=== PATIENT | female | born 1985 | race Caucasian/White ===

== ENCOUNTER 2023-11-09 02:52 | Emergency (ER) | payer OTHER, SELFPAY ==
[2023-11-09 02:54] VITALS: BP 122/72
[2023-11-09 03:08] VITALS: BMI 29.9
[2023-11-09 03:23] VITALS: BP 120/70
--- NOTE | 2023-11-09 03:23 | ED.GENMED ---
History of Present Illness
<JOSE Mijares - Last Filed: 11/09/23 03:45>
General
Chief Complaint: Abdominal Pain
Source: patient
Exam Limitations: none
Time Seen by Provider: 11/09/23 03:08
Nursing documentation reviewed up to this point in time: agreed with
History of Present Illness
History of Present Illness:
Pt is a 38 y/o F with pmhx of anxiety presents with complaints of epigastric pain and chest tightness x5 hrs. The abdominal pain and chest tightness is constant and rated a 7-8/10 despite taking Ibuprofen, Cyclobenzaprine, and hydrocodone. The chest
tightness radiates into bilateral upper extremities. Pain is not worsened with food, laying down, or sitting up. There is associated nausea, SOB, dyspnea, lightheadedness and dizziness with sensations of near syncope. The SOB is worsened with
movement. Denies vomiting, constipation, diarrhea, bloating, LOC, headache.
The pt has a pmhx of anxiety and back surgery. The pt takes Miles, Buspirone, and Lamictal. She has Cyclobenzaprine and hydrocodone that was leftover from her back surgery.
Past History
<JOSE Mijares - Last Filed: 11/09/23 03:45>
Past History
ED Past Medical History: Psychiatric (anxiety)
Social History
Tobacco: Non-smoker
Alcohol: None
Drug: None
Review of Systems
<JSOE Mijares - Last Filed: 11/09/23 03:45>
Review of Systems
Allergies reviewed?: Yes
Constitutional: Reports no symptoms
EENT: Reports no symptoms
Respiratory: Reports trouble breathing
Cardiac: Reports chest pain
ABD/GI: Reports abdominal pain and nausea
: Reports no symptoms
Musculoskeletal: Reports no symptoms
Skin: Reports no symptoms
Neurological: Reports dizzy and headache
Endocrine: Reports no symptoms
Hematologic/Lymphatic: Reports no symptoms
Psychiatric: Reports no symptoms
Phy Exam
<JOSE Mijares - Last Filed: 11/09/23 03:45>
General Physical Exam
General Presentation: well appearing and no apparent distress
General age: appears stated age
General Skin: warm and dry
General Habitus: normal
General Mental: alert
ENT Exam
ENT Exam: neck supple and normocephalic
Eye Exam
Eye Exam: PERRL, EOMI, cornea clear and conjunctiva normal
Cardiovascular Exam
Cardiovascular Exam: regular rate/rhythm and normal peripheral pulses
Pulmonary Exam
Pulmonary Exam: lungs clear and no cough
Respirations: mild increase in effort and shallow
Chest Wall: Left anterior: tenderness, Left lateral: tenderness and Right lateral: tenderness
Gastrointestinal Exam
Gastrointestinal Exam: normal bowel sounds, soft and non distended
Palpation: left upper quadrant: Moderate tenderness, left lower quadrant: No tenderness, right upper quadrant: Moderate tenderness and right lower quadrant: No tenderness
Neurological Exam
Neurological Exam: alert, oriented x3, CN II-XII intact, no motor deficits, normal reflexs, no sensory deficits and speech normal
Musculoskeletal Exam
Musculoskeletal Exam: full ROM and neuro vasc intact
Skin Exam
Skin Exam: normal color and warm/dry
Psychiatric Exam
Psychiatric Exam: normal mood/affect
Course
<JOSE Mijares - Last Filed: 11/09/23 03:45>
Orders/Labs/Results
Orders:
Orders
11/09/23 02:59
ECG [Electrocardiogram (*1)] Urgent
Reason for Study: Abdominal Pain
EKG- Treatment ONCE
11/09/23 03:01
IV Insert/Care/Rem.- Treatment PRN
11/09/23 03:04
Test Result ONCE
11/09/23 03:15
Complete Blood Count/With Diff Urgent
Comprehensive Metabolic Panel Urgent
HCG, Serum Qualitative Screen Urgent
Lipase Urgent
Urinalysis Reflex To Culture Urgent
Date Specimen was Collected: 11/09/23
Time Specimen was Collected: 03:01
11/09/23 03:33
Miles Urgent
Troponin I Urgent
11/09/23 04:01
US Abdomen Complete/Upper Urgent
Comment:
Reason For Exam: upper abd. pain
11/09/23 04:17
CR Chest - 2 Views Urgent
Comment:
Reason For Exam: upper abd paon
Abnormal Lab Results
11/09/23 11/09/23
03:15 03:33
WBC 16.0 H 10^3/uL
(4.8-10.8)
Hct 36.8 L %
(37.0-47.0)
Plt Count 416 H 10^3/uL
(130-400)
Abs Immat Gran (auto) 0.1 H 10^3/uL
(0-0.05)
Absolute Neuts (auto) 13.6 H 10^3/uL
(1.4-6.5)
Neutrophils % 84.9 H %
(42.2-75.2)
Lymphocytes % 10.1 L %
(20.5-51.1)
Glucose 116 H mg/dl
(70-99)
AST 59 H U/L
(14-36)
Miles 0.4 L mmol/L
(0.6-1.2)
11/09/23 03:15
11/09/23 03:15
Vital Signs
Initial and Last Documented VS:
Initial Vital Signs
Temp Pulse Resp BP Pulse Ox
97.7 F 79 19 122/72 100
11/09/23 02:54 11/09/23 02:54 11/09/23 02:54 11/09/23 02:54 11/09/23 02:54
Last Documented Vital Signs
Temp Pulse Resp BP Pulse Ox
97.7 F 88 18 122/67 99
11/09/23 02:54 11/09/23 04:00 11/09/23 06:00 11/09/23 06:00 11/09/23 06:00
<Toi Constantino, - Last Filed: 11/09/23 06:40>
Orders/Labs/Results
Orders:
Orders
11/09/23 02:59
ECG [Electrocardiogram (*1)] Urgent
Reason for Study: Abdominal Pain
EKG- Treatment ONCE
11/09/23 03:01
IV Insert/Care/Rem.- Treatment PRN
11/09/23 03:04
Test Result ONCE
11/09/23 03:15
Complete Blood Count/With Diff Urgent
Comprehensive Metabolic Panel Urgent
HCG, Serum Qualitative Screen Urgent
Lipase Urgent
Urinalysis Reflex To Culture Urgent
Date Specimen was Collected: 11/09/23
Time Specimen was Collected: 03:01
11/09/23 03:33
Miles Urgent
Troponin I Urgent
11/09/23 04:01
US Abdomen Complete/Upper Urgent
Comment:
Reason For Exam: upper abd. pain
11/09/23 04:17
CR Chest - 2 Views Urgent
Comment:
Reason For Exam: upper abd paon
Abnormal Lab Results
11/09/23 11/09/23
03:15 03:33
WBC 16.0 H 10^3/uL
(4.8-10.8)
Hct 36.8 L %
(37.0-47.0)
Plt Count 416 H 10^3/uL
(130-400)
Abs Immat Gran (auto) 0.1 H 10^3/uL
(0-0.05)
Absolute Neuts (auto) 13.6 H 10^3/uL
(1.4-6.5)
Neutrophils % 84.9 H %
(42.2-75.2)
Lymphocytes % 10.1 L %
(20.5-51.1)
Glucose 116 H mg/dl
(70-99)
AST 59 H U/L
(14-36)
Miles 0.4 L mmol/L
(0.6-1.2)
11/09/23 03:15
11/09/23 03:15
Vital Signs
Initial and Last Documented VS:
Initial Vital Signs
Temp Pulse Resp BP Pulse Ox
97.7 F 79 19 122/72 100
11/09/23 02:54 11/09/23 02:54 11/09/23 02:54 11/09/23 02:54 11/09/23 02:54
Last Documented Vital Signs
Temp Pulse Resp BP Pulse Ox
97.7 F 88 18 122/67 99
11/09/23 02:54 11/09/23 04:00 11/09/23 06:00 11/09/23 06:00 11/09/23 06:00
<JOSE Mijares - Last Filed: 11/09/23 03:45>
MDM/Problems Addressed
Differential Diagnosis Includes:
GERD
Gastritis
Acute Myocardial Infarction
Miles toxicity
<JOSE Mijares - Last Filed: 11/09/23 03:45>
*Critical Care Note
Total Time (30-74mins, 75-104mins- exclusive of procedures): Not Applicable
<Toi Constantino DO - Last Filed: 11/09/23 06:40>
Update Note
Update Note:
ABDOMINAL ULTRASOUND
IMPRESSION:
Impacted gallstone at the neck and the gallbladder is distended. No sonographic Mann's sign (but the patient received pain medications). No wall thickening, pericholecystic fluid, or other signs of cholecystitis. Common bile duct is
unremarkable. Constellation findings are nonspecific, consider further workup if indicated or followup ultrasound especially if symptoms persist or progress.
Remainder of the visualized upper abdomen is unremarkable.
Patient was to be admitted to the hospital. Patient concerned because she has a trip that she has been planning for a year, and is leaving tomorrow. Patient does not wish to be in the hospital at this time. Case was discussed with general
surgery. Patient did pass a p.o. challenge. Did discuss a bland diet. I did discuss symptoms for which she should return to the nearest emergency department including but not limited to fever, chills, increased pain or discomfort. Patient
verbalized understanding of this and is in agreement. I will give her the name of general surgery.
ED Attending Note
<JOSE Mijares - Last Filed: 11/09/23 03:45>
-
Portions of this chart may have been created with voice recognition software.� Occasional wrong word or��sound alike� substitutions may have occurred due to the inherent limitations of voice recognition software.
<Toi Constantino DO - Last Filed: 11/09/23 06:40>
ED Attending Note
Patient seen and examined by attending physician: Yes
I performed the substantive portion of visit, reviewed & personally made and approve the management plan that is documented in note by myself or ARIES.: Yes
Discharge Plan
Departure
Patient Disposition: Home (Routine Discharge)
Date of Disposition: 11/09/23
Time of Disposition: 06:39
Patient with high blood pressure during this ER visit?: Yes
Condition: Good
Discharge Problem:
Biliary colic
Instructions: [place] Diet, Gallstones (DC), Abdominal Pain, BLOOD PRESSURE
Prescriptions:
No Action
cyclobenzaprine 10 mg Tablet
10 mg PO HS PRN (Reason: muscle pain)
buspirone 5 mg Tablet
5 mg PO HS
lamotrigine [Lamictal] 200 mg Tablet
200 mg PO HS
lithium carbonate 450 mg Tablet Extended Release
450 mg PO HS
hydrocodone-acetaminophen 5-300 mg Tablet
1 tab PO Q6H PRN (Reason: pain)
Referrals:
Jin Holder MD [Active] - Next open appointment
NONE,* [Family Provider] -
Activity Restrictions/Additional Instructions:
It was a pleasure meeting you and taking part in your care. We hope for your continued healing and wellness.
Please read discharge instructions in their entirety. However, they are for general education and may not describe your exact diagnosis at discharge. Information on your ER visit and medical conditions were discussed with you along with appropriate
follow up information...
If indicated, please take your medications as instructed and indicated on discharge paperwork.
Please schedule a follow up appointment as directed. Call to schedule an appointment
Please return to the emergency department with ANY change in, persisting, or worsening of symptoms. If any of your symptoms do not improve, or persist, or become more severe within 6-12 hours, please return to the emergency department for further
care.
Please return to the emergency department if you develop a headache, neck pain/stiffness, fever greater than 100.4F, chest pain, shortness of breath, persistent nausea, vomiting, slurred speech, difficulty walking, numbness/tingling, weakness, signs
of infection or any other symptoms that are worrisome to you.
If you have any questions or concerns please do not hesitate to call the Hospital at or E-mail me directly at [email or web address]
Interventions
Interventions:
*Risk Screen - Suicide Last Done: 11/09/23 02:54
*General Assessment Last Done: 11/09/23 02:54
*Neglect/Abuse Screening Last Done: 11/09/23 02:54
ED- Fall Risk Assessment Last Done: 11/09/23 03:21
*ED COVID-19 Vaccine History Last Done: 11/09/23 02:54
[place]-Ctpggm-Tdliejherk Assessment Last Done: 11/09/23 03:21
Discharge Date and Time
Print Language: TUVALUAN
[2023-11-09 03:26] LABS: % Basophils 0.3 % (0-2); % Eosinophils 0.4 % (0-6); % Immature Granulocytes 0.5 % (0-0.5); % Lymphocytes 10.1 % (20.5-51.1); % Monocytes 3.8 % (1.7-9.3); % Neutrophils 84.9 % (42.2-75.2); Absolute Eosinophils 0.1 10^3/uL (0-0.7); Absolute Immature Granulocytes 0.1 10^3/uL (0-0.05); Absolute Lymphocytes 1.6 10^3/uL (1.2-3.4); Absolute Monocytes 0.6 10^3/uL (0.1-0.6); Absolute Neutrophils 13.6 10^3/uL (1.4-6.5); Hematocrit 36.8 % (37.0-47.0); Hemoglobin 12.8 g/dL (12.0-16.0); Mean Corp Hgb Conc. 34.8 g/dL (33.0-37.0); Mean Corpuscular Volume 83.4 fL (81.0-99.0); Mean Platelet Volume 8.5 fL (7.4-10.4); Nucleated Red Blood Cells % 0 %; Platelet Count 416 10^3/uL (130-400); Red Blood Cell Count 4.41 10^6/uL (4.20-5.40); Red Cell Dist. Width 12.5 % (11.5-14.5); Urine Albumin Negative (Neg - Trace); Urine Bilirubin Negative (Negative); Urine Character Clear (Clear); Urine Color Yellow; Urine Glucose Negative (Negative); Urine Ketone Negative (Negative); Urine Leukocyte Negative (Negative); Urine Nitrite Negative (Negative); Urine Occult Blood Negative (Negative); Urine Specific Gravity 1.025 (<1.030); Urine Urobilinogen Negative (Neg - 1+)
[2023-11-09 03:35] LABS: HCG, Serum Qualitative Screen Negative
[2023-11-09 03:38] LABS: ALT (SGPT) 34 U/L (0-35); AST (SGOT) 59 U/L (14-36); Albumin 4.8 g/dl (3.5-5.0); Alkaline Phosphatase 85 U/L (38-126); Blood Urea Nitrogen 9 mg/dl (7-17); Calcium 10.2 mg/dl (8.4-10.2); Carbon Dioxide 27 mmol/L (22-30); Chloride 102 mmol/L (98-107); Estimated Creatinine Clearance > 125 ml/min; Glucose 116 mg/dl (70-99); Lipase 294 U/L (23-300); Potassium 3.9 mmol/L (3.5-5.1); Sodium 141 mmol/L (135-145); Total Bilirubin 0.3 mg/dl (0.2-1.3); eGFR > 60.00
[2023-11-09 04:00] VITALS: BP 121/69
[2023-11-09 04:06] LABS: Lithium 0.4 mmol/L (0.6-1.2)
[2023-11-09 04:22] LABS: Troponin I < 0.012 ng/ml
[2023-11-09 05:00] VITALS: BP 121/69
[2023-11-09 06:00] VITALS: BP 122/67
== END 2023-11-09 06:53 | disposition home or self-care (01) ==
LOC: EMR 02:52
PROVIDERS: EMERGENCY PHYSICIAN Student in an Organized Health Care Education/Training Program
DX: R55 Syncope and collapse (principal); R06.02 Shortness of breath; R07.89 Other chest pain; R51.9 Headache, unspecified; R11.0 Nausea; K80.70 Calculus of gallbladder and bile duct without cholecystitis without obstruction; R03.0 Elevated blood-pressure reading, without diagnosis of hypertension; F41.9 Anxiety disorder, unspecified
CPT/HCPCS: 99285; 71046; 76700; 80053; 80178; 81003; 83690; 84484; 84703; 85025; 93005

== ENCOUNTER 2023-11-24 06:57 | Day surgery (SDC) | payer OTHER, SELFPAY ==
--- NOTE | 2023-11-23 11:17 | PTCARENOTE ---
WBC 16.0 from 10/2023, Andreina at Dr Moreno's office notified.
--- NOTE | 2023-11-24 10:59 | W.SUR.PREOP ---
Pre-Operative Surgical Note
-
I have examined this patient prior to the performance of the scheduled procedure.
The patient's condition is unchanged from the time of the current History and
Physical and the patient is able to undergo the scheduled procedure.
[2023-11-24 11:02] VITALS: BMI 31.0
[2023-11-24 11:03] VITALS: BMI 31.0
[2023-11-24] MEDS: TYLENOL 1000 MG PO (11:04)
[2023-11-24] MEDS: EMEND 40 MG PO (11:04)
[2023-11-24] MEDS: NORMOSOL-R/PLASMALYTE-A 1000 IV (11:16)
[2023-11-24 11:24] VITALS: BP 158/92
[2023-11-24 13:53] VITALS: BP 127/70; BP 158/92
--- NOTE | 2023-11-24 14:06 | W.IMMPOSTOP ---
Surgical Immed Post Op Note
-
Primary Surgeon: Clyde Carrasco MD
Assisting Surgeon: None
Pre-op Diagnosis: Biliary colic
Post-op Diagnosis: Acute cholecystitis
Procedure Performed: Laparoscopic cholecystectomy with cholangiogram
Anesthesia Type: General
Specimen / Cultures: Gallbladder and contents
Estimated Blood Loss: 11 cc
Complications: None
Operative Findings: Acutely inflamed gallbladder with significant adhesions from the omentum and duodenum over the anterior surface of the gallbladder. These were taken down using electrocautery and blunt dissection. The cystic triangle was
densely inflamed. We were able to identify the cystic artery early and high on the gallbladder and so was ligated. We were able to get into a plane behind the gallbladder also high on the cystic plate which we used to dissect down towards the
vazquez. Eventually were able to obtain a critical view of safety. The cystic duct appeared quite narrow. The distal end of the gallbladder was ligated with a 0 silk suture and a cholangiogram was performed which demonstrated normal biliary anatomy
and no filling defects. There was some purulent material that was expressed from the cystic duct. The duct was ligated with a clip followed by 0 PDS Endoloop.
Postop plan:
Will DC home with a 4-day course of antibiotics.
--- NOTE | 2023-11-24 14:09 | OR.RPT ---
Operative Report
Operative Report
Patient Name: Divya Duong
: 1985
Date of Operation: 11/24/2023
Preoperative Diagnosis: Symptomatic cholelithiasis
Postoperative Diagnosis: Acute cholecystitis
Procedure(s):
Laparoscopic Cholecystectomy with Cholangiogram
Surgeon(s):
Dr. Carrasco
Intensive Care Unit Registered Nurse(s):
RASHIDA Hull
Anesthesia: General
Estimated Blood Loss: 11 cc
Urine Output: None
Drains/Lines/Implants: None
Specimens:
1. Gallbladder and contents
HPI/Surgical Indications:
This is a 38-year-old female who I saw in my clinic for postprandial right upper quadrant pain. Exam, labs and imaging are consistent with symptomatic cholelithiasis though given her early tenderness early acute cholecystitis was on the
differential. Risks/Benefits/Alternatives were discussed at length, and the patient agreed to proceed with surgery.
Operative Findings: Acutely inflamed gallbladder with significant adhesions from the omentum and duodenum over the anterior surface of the gallbladder. These were taken down using electrocautery and blunt dissection. The cystic triangle was
densely inflamed. We were able to identify the cystic artery early and high on the gallbladder and so was ligated. We were able to get into a plane behind the gallbladder also high on the cystic plate which we used to dissect down towards the
vazquez. Eventually were able to obtain a critical view of safety. The cystic duct appeared quite narrow. The distal end of the gallbladder was ligated with a 0 silk suture and a cholangiogram was performed which demonstrated normal biliary anatomy
and no filling defects. There was some purulent material that was expressed from the cystic duct. The duct was ligated with a clip followed by 0 PDS Endoloop.
Procedure Description:
The patient was brought to the Operating Room and placed in the supine position with one arm tucked. Following uneventful induction of general endotracheal anesthesia, an orogastric tube was placed. The abdomen was prepped and draped in the usual
sterile fashion. A timeout was performed confirming the procedure, consent, and that IV antibiotics were infused and sequential compression devices were confirmed to be on. The abdomen was entered using a left subcostal Veress technique which
required a single pass followed by a right upper quadrant 5 mm Optiview trocar. Pneumoperitoneum to 15 mmHg pressure was obtained without difficulty and we confirmed that no injury had occurred during our entry. The patient was positioned in reverse
Trendelenberg and rotated with the right side up slightly. Two (3) 5mm trocars were then placed along the right subcostal margin, followed by a 12 mm port in the epigastrium. The gallbladder had significant adhesions from the underlying colon and
duodenum which was dissected away using blunt and electrocautery dissection. The gallbladder was emptied using a decompressing needle through the fundus of the gallbladder with evacuation of hydrops before A locking grasping forceps was placed on
the fundus of the gallbladder where it was then retracted cephalad and to the right. Using appropriate grasping instruments, the peritoneum overlying the triangle of Calot was incised and extended superiorly on both the anterior and posterior
gallbladder roblero. The planes were incredibly scarred in. We did identify the cystic artery early and high on the gallbladder. This was ligated with a 5 mm titanium clips. We were able to get behind the gallbladder about a third of the way up on
the cystic plate which we then followed this plane retrograde to help us dissect the cystic triangle. The cystic artery was identified and ligated once more this time closer to the takeoff of the right hepatic. No accessory branches were
sacrificed. The cystic duct was identified as was the common bile duct. As the cystic duct appeared to be quite short 0 silk suture was used to surround and ligate the gallbladder/cystic duct junction and ductotomy was made. There was some thick
white material that we were able to express from the duct but no stones were identified. A cholangiocatheter on an Maurice clamp was inserted into the cystic duct. A C-arm was draped and brought into the field. An intra-operative cholangiogram was
performed and was noted to have:
No filling defects in the biliary tree
No significant biliary dilation
Brisk flow of contrast into the duodenum
Normal biliary anatomy
The catheter was then removed and the cystic duct was controlled with a clip followed by a 0 PDS Endoloop. After ensuring both the artery and duct were divided, the gallbladder was freed from the liver using electrocautery. There was no spillage
of bile or stones. The gallbladder bed was inspected and excellent hemostasis was obtained. The gallbladder was extracted through the 12 mm trocar site using an endocatch bag. The abdomen was again irrigated and excellent hemostasis was assured.
The 12 mm trocar site was closed using 0 PDS suture. All remaining trocars were then removed and the pneumoperitoneum was evacuated. All trocar sites were closed at the skin level using 4-0 Monocryl followed by Dermabond. Overall, the patient
tolerated the procedure well and was taken to the Recovery Room postoperatively in stable condition.
I was the attending physician and performed the procedure with assistance from the PA above. The assistance of RASHIDA Hull was required due to the complexity of the procedure. During the procedure Eneida assisted with retraction, resection, and
closure of the wound. I was present for all portions of the case, excluding wound closure
Clyde Carrasco MD
[2023-11-24] MEDS: DILAUDID 0.5 MG IV ×2 (14:12→15:06)
[2023-11-24 14:15] VITALS: BP 119/61
[2023-11-24 14:31] VITALS: BP 124/64
[2023-11-24] MEDS: DILAUDID 0.25 MG IV (14:35)
[2023-11-24] MEDS: TORADOL 30 MG IV (15:14)
[2023-11-24 15:55] VITALS: BP 109/62
[2023-11-24 16:30] VITALS: BP 118/68
== END 2023-11-24 16:45 | disposition home or self-care (01) ==
LOC: SDS 06:57
PROVIDERS: ATTENDING PHYSICIAN Surgery
DX: K80.18 Calculus of gallbladder with other cholecystitis without obstruction (principal); R10.11 Right upper quadrant pain
CPT/HCPCS: 47563; 88304; 74300; 76000; A4300